=== PATIENT | male | born 1990 | race Caucasian/White ===

== ENCOUNTER 2019-04-21 18:10 | Emergency (ER) | payer SELFPAY ==
[~2019-04-21] VITALS: Ht 175.3 cm; Wt 68.0 kg
--- NOTE | 2019-04-21 18:12 | NUR ---
Yeimy romero in [facility] - 04/21/19 at 1813 by EMILIANO PT IN WHEELCHAIR TO ER BED 03
--- NOTE | 2019-04-21 18:14 | NUR ---
PT IN WHEELCHAIR TO ER BED 07
--- NOTE | 2019-04-21 18:15 | NUR ---
PT C/O LT ANKLE PAIN AFTER TRIPPING OVER PARKING BLOCK X2 DAYS AGO. PAIN STARTED LAST NIGHT, ACHING 2/10 PAIN UPON RESTING. ANKLE AND FOOT SWOLLEN WITH MILD BRUISING. PT ABLE TO MOVE TOES, CAP REFILL <3 SECONDS. ABLE TO BARE WEIGHT ON FOOT, BUT PAIN 8/10 WHEN STANDING. PT STATES HE TOOK ANTI-INFLAMMATORY AT 1500 TODAY. UNLABORED, EVEN RESPIRATIONS, DENIES N,V,D. PT RESTING IN BED WITH GIRLFRIEND AT BEDSIDE, CALM. MEDHX: DENIES RX: DENIES ALLERGIES: DENIES
[2019-04-21 18:18] VITALS: BP 121/71
--- NOTE | 2019-04-21 18:20 | NUR ---
XRAY AT BEDSIDE
[2019-04-21] MEDS ORDERED: IBUPROFEN 800 MG TAB PO ONE (18:30)
[2019-04-21 19:04] VITALS: BP 121/71
== END 2019-04-21 19:04 | disposition home or self-care (01) ==
LOC: MED 18:10
DX: S93.402A Sprain of unspecified ligament of left ankle, initial encounter (principal); W22.8XXA Striking against or struck by other objects, initial encounter; Y93.89 Activity, other specified; Y92.481 Parking lot as the place of occurrence of the external cause; Y99.8 Other external cause status
CPT/HCPCS: 73610; 99283; Q0092